=== PATIENT | female | born 1985 | race Caucasian/White ===

== ENCOUNTER 2018-04-15 20:08 | Emergency (ER) | payer MEDICAID ==
[~2018-04-15] VITALS: Ht 167.6 cm; Wt 65.8 kg
[2018-04-15 20:30] VITALS: BP_SYST 128
[2018-04-15 21:34] VITALS: BP_SYST 122
== END 2018-04-15 21:33 | disposition home or self-care (01) ==
LOC: SED 20:08
DX: S63.501A Unspecified sprain of right wrist, initial encounter (principal); S16.1XXA Strain of muscle, fascia and tendon at neck level, initial encounter; S39.012A Strain of muscle, fascia and tendon of lower back, initial encounter; R03.0 Elevated blood-pressure reading, without diagnosis of hypertension; V43.62XA Car passenger injured in collision with other type car in traffic accident, initial encounter; Y93.89 Activity, other specified; Y92.488 Other paved roadways as the place of occurrence of the external cause; Y99.8 Other external cause status
CPT/HCPCS: 81025; 99283

== ENCOUNTER 2018-07-28 21:31 | Emergency (ER) | payer MEDICAID ==
[~2018-07-28] VITALS: Ht 165.1 cm; Wt 63.0 kg
[2018-07-28 21:35] VITALS: BP_SYST 133
--- NOTE | 2018-07-28 21:38 | NUR ---
Patient to ER bed 08 to gown for evaluation. Side rails up.
--- NOTE | 2018-07-28 21:40 | NUR ---
Patient complaining of brown discharge to right breast x 2 days with abdominal discomfort and pain with urination. Denies any nausea, vomiting or diarrhea. No other complaints/injuries per patient or as noted. Will continue to monitor.
--- NOTE | 2018-07-28 22:01 | NUR ---
Urine specimen collected and analyzed in ER. Results given to ER MD. Urine HCG done, results neg
--- NOTE | 2018-07-28 22:02 | NUR ---
ELLEN Coker at bedside examining patient.
[2018-07-28 22:24] LABS: BILIRUBIN,URINE NEGATIVE (NEGATIVE); BLOOD, URINE 2+ (NEGATIVE); CLARITY/URINE HAZY (CLEAR); COLOR,URINE YELLOW (YELLOW); GLUCOSE,URINE NEGATIVE (NEGATIVE); KETONES,URINE TRACE (NEGATIVE); LEUKOCYTE ESTERASE ,URINE 1+ (NEGATIVE); NITRITE, URINE NEGATIVE (NEGATIVE); PROTEIN URINE NEGATIVE (NEGATIVE); UROBILINOGEN,URINE 0.2 (0.2-1.0)
[2018-07-28 23:00] VITALS: BP_SYST 133
--- NOTE | 2018-07-28 23:00 | NUR ---
2300 - Patient given written and verbal discharge instructions and verbalizes understanding. ER MD discussed with patient the results and treatment provided. Patient in stable condition. ID arm band removed. Rx of macrobid given. Patient educated on pain management and to follow up with PMD. Pain Scale 0. Opportunity for questions provided and answered. Medication side effect fact sheet provided.
[2018-07-28 23:05] LABS: BACTERIA,URINE FEW /HPF (None Seen)
[2018-07-28 23:06] LABS: MUCUS,URINE 2+ /LPF (None Seen)
== END 2018-07-28 23:00 | disposition home or self-care (01) ==
LOC: SED 21:31
DX: N64.4 Mastodynia (principal); N39.0 Urinary tract infection, site not specified
CPT/HCPCS: 81000-TC; 81025; 87086; 99283

== ENCOUNTER 2018-11-12 20:58 | Emergency (ER) | payer MEDICAID ==
[~2018-11-12] VITALS: Ht 167.6 cm; Wt 63.5 kg
[2018-11-12 21:17] VITALS: BP_SYST 109
[2018-11-12 21:59] LABS: BILIRUBIN,URINE NEGATIVE (NEGATIVE); CLARITY/URINE CLEAR (CLEAR); COLOR,URINE YELLOW (YELLOW); GLUCOSE,URINE NEGATIVE (NEGATIVE); KETONES,URINE NEGATIVE (NEGATIVE); LEUKOCYTE ESTERASE ,URINE NEGATIVE (NEGATIVE); NITRITE, URINE NEGATIVE (NEGATIVE); PROTEIN URINE NEGATIVE (NEGATIVE)
[2018-11-12 22:03] LABS: BLOOD, URINE TRACE (NEGATIVE)
[2018-11-12 22:18] LABS: RBC,URINE 0-3 /HPF (0-3); WBC,URINE 0-3 /HPF (0-3)
[2018-11-12 22:19] LABS: BACTERIA,URINE RARE /HPF (None Seen); MUCUS,URINE None Seen /LPF (None Seen)
[2018-11-12 22:29] LABS: BASOPHILS % (AUTO) 0.4 % (0.0-2.0); EOSINOPHILS # (AUTO) 0.1 K/uL (0.0-0.4); HEMATOCRIT 36.5 % (36-48); HEMOGLOBIN 12.3 g/dL (12.0-16.0); LYMPHOCYTES # (AUTO) 2.2 K/uL (1.0-5.5); LYMPHOCYTES % (AUTO) 29.1 % (20.5-51.5); MEAN CORPUSCULAR HEMOGLOBIN 30 pg (27-31); MEAN CORPUSCULAR HGB CONC 34 % (32-36); MEAN CORPUSCULAR VOLUME 88 fL (79.0-98.0); MONOCYTES # (AUTO) 0.6 K/uL (0.0-1.0); MONOCYTES % (AUTO) 8.4 % (1.7-9.3); NEUTROPHILS # (AUTO) 4.6 K/uL (1.8-7.7); NEUTROPHILS % (AUTO) 61.1 % (40.0-70.0); PLATELET COUNT (AUTO) 279 K/uL (130-430); RED BLOOD CELL COUNT(AUTO) 4.15 MIL/uL (4.2-6.2); WHITE BLOOD COUNT (AUTO) 7.6 K/uL (4.8-10.8)
[2018-11-12 22:53] LABS: CALCIUM 9.2 mg/dL (8.4-11.0); CREATININE 0.71 mg/dL (0.55-1.30); POTASSIUM 3.9 mmol/L (3.5-5.1)
[2018-11-12 22:59] LABS: ALBUMIN 3.8 g/dL (3.4-4.8); TOTAL BILIRUBIN 0.5 mg/dL (0.0-1.0)
--- NOTE | 2018-11-12 23:25 | NUR ---
Patient to ER bed 7 to gown for evaluation. Side rails up. Report given to ZENAIDA SEARS.
--- NOTE | 2018-11-12 23:30 | NUR ---
Pt C/O pelvic pain and dysuria. Pt denies any flank pain, N/V/D, or any other symptoms at this time. Lab and urine have been collected. Will continue to monitor.
--- NOTE | 2018-11-13 00:28 | NUR ---
Pt is resting in bed, no acute distress noted at this time.
--- NOTE | 2018-11-13 01:25 | NUR ---
Dr. Arndt at bedside for re-evaluation.
[2018-11-13] MEDS ORDERED: KETOROLAC TROMETHAMINE 30 MG VIAL IVP ONE (01:30)
--- NOTE | 2018-11-13 01:33 | NUR ---
Patient transported to radiology via wheelchair, accompanied by rad staff.
--- NOTE | 2018-11-13 01:40 | NUR ---
Pt returned in stable condition
--- NOTE | 2018-11-13 01:45 | NUR ---
Pt has been given Toradol IM via Dr. Arndt order. Will continue to monitor
[2018-11-13 02:38] VITALS: BP_SYST 118
--- NOTE | 2018-11-13 02:41 | NUR ---
Patient given written and verbal discharge instructions and verbalizes understanding. ER MD discussed with patient the results and treatment provided. Patient in stable condition. ID arm band removed. Rx of [place] given. Patient educated on pain management and to follow up with PMD. Pain Scale 0. Opportunity for questions provided and answered. Medication side effect fact sheet provided.
== END 2018-11-13 02:41 | disposition home or self-care (01) ==
LOC: SED 20:58
DX: K80.20 Calculus of gallbladder without cholecystitis without obstruction (principal); N83.202 Unspecified ovarian cyst, left side; N83.201 Unspecified ovarian cyst, right side
CPT/HCPCS: 36415; 74176; 76856; 80053; 81000; 85025; 96372; 99284; J1885

== ENCOUNTER 2019-09-05 23:03 | Emergency (ER) | payer MEDICAID ==
[~2019-09-05] VITALS: Ht 165.1 cm; Wt 63.5 kg
[2019-09-05 23:12] VITALS: BP_SYST 124
[2019-09-05] MEDS ORDERED: MORPHINE 2 MG/ML INJ. SYRINGE IVP ONE (23:30)
[2019-09-05] MEDS ORDERED: cefTRIAXone 1 GM IVPB PREMIX 50 ML IV ONE (23:30)
[2019-09-06 00:20] LABS: BASOPHILS % (AUTO) 0.4 % (0.0-2.0); EOSINOPHILS # (AUTO) 0.1 K/uL (0.0-0.4); EOSINOPHILS % (AUTO) 1.4 % (0.0-4.0); HEMATOCRIT 35.9 % (36-48); HEMOGLOBIN 12.4 g/dL (12.0-16.0); LYMPHOCYTES # (AUTO) 2.1 K/uL (1.0-5.5); LYMPHOCYTES % (AUTO) 32.3 % (20.5-51.5); MEAN CORPUSCULAR HEMOGLOBIN 30 pg (27-31); MEAN CORPUSCULAR HGB CONC 34 % (32-36); MEAN CORPUSCULAR VOLUME 87 fL (79.0-98.0); MONOCYTES # (AUTO) 0.7 K/uL (0.0-1.0); MONOCYTES % (AUTO) 11.1 % (1.7-9.3); NEUTROPHILS # (AUTO) 3.6 K/uL (1.8-7.7); NEUTROPHILS % (AUTO) 54.8 % (40.0-70.0); PLATELET COUNT (AUTO) 281 K/uL (130-430); RED BLOOD CELL COUNT(AUTO) 4.14 MIL/uL (4.2-6.2); RED CELL DISTRIBUTION WIDTH 12.6 % (9.0-15.0); WHITE BLOOD COUNT (AUTO) 6.6 K/uL (4.8-10.8)
[2019-09-06 00:21] LABS: BILIRUBIN,URINE NEGATIVE (NEGATIVE); BLOOD, URINE 1+ (NEGATIVE); CLARITY/URINE CLEAR (CLEAR); COLOR,URINE YELLOW (YELLOW); GLUCOSE,URINE NEGATIVE (NEGATIVE); KETONES,URINE NEGATIVE (NEGATIVE); LEUKOCYTE ESTERASE ,URINE 1+ (NEGATIVE); NITRITE, URINE NEGATIVE (NEGATIVE); PROTEIN URINE NEGATIVE (NEGATIVE); UROBILINOGEN,URINE 0.2 (0.2-1.0)
[2019-09-06 00:33] LABS: CREATININE 0.78 mg/dL (0.55-1.30); POTASSIUM 3.6 mmol/L (3.5-5.1)
[2019-09-06 00:35] LABS: BACTERIA,URINE RARE /HPF (None Seen)
[2019-09-06 00:39] LABS: ALBUMIN 3.8 g/dL (3.4-4.8); TOTAL BILIRUBIN 0.4 mg/dL (0.0-1.0)
[2019-09-06] MEDS ORDERED: cefTRIAXone 1 GM IVPB PREMIX 50 ML IV ONE (00:39)
[2019-09-06] MEDS ORDERED: KETOROLAC TROMETHAMINE 30 MG VIAL IVP ONE (00:45)
[2019-09-06 02:01] VITALS: BP_SYST 124
== END 2019-09-06 02:01 | disposition home or self-care (01) ==
LOC: SED 23:03
DX: K80.50 Calculus of bile duct without cholangitis or cholecystitis without obstruction (principal); N39.0 Urinary tract infection, site not specified
CPT/HCPCS: 36415; 76700; 80053; 81000; 82150; 83690; 85025; 87040; 87086; 96365; 96375; 99284; J0696; J1885; J2270

== ENCOUNTER 2019-12-08 19:53 | Emergency (ER) | payer MEDICAID ==
[~2019-12-08] VITALS: Ht 165.1 cm; Wt 68.0 kg
[2019-12-08 19:58] VITALS: BP_SYST 139
[2019-12-08 20:16] VITALS: BP_SYST 134
== END 2019-12-08 20:16 | disposition home or self-care (01) ==
LOC: SED 19:53
DX: M94.0 Chondrocostal junction syndrome [Tietze] (principal)
CPT/HCPCS: 93005; 99283

== ENCOUNTER 2020-08-11 21:26 | Emergency (ER) | payer MEDICAID ==
[~2020-08-11] VITALS: Ht 162.6 cm; Wt 65.8 kg
--- NOTE | 2020-08-11 21:29 | NUR ---
Patient to ER bed 06 to gown for evaluation. Side rails up.
[2020-08-11 21:33] VITALS: BP_SYST 122
--- NOTE | 2020-08-11 22:00 | NUR ---
Pt walked in c/o bilateral ear pain, sore throat, HANDY x several weeks. Denies blurred vision, dizziness, difficulty breathing.
--- NOTE | 2020-08-11 22:30 | NUR ---
Dr. Asencio at bedside for MSE.
[2020-08-11] MEDS ORDERED: OXYM15MI9 NS (22:49)
[2020-08-11] MEDS ORDERED: CLAR250T12 PO (22:49)
[2020-08-11] MEDS ORDERED: PRED20TA PO (22:49)
[2020-08-11] MEDS ORDERED: NAPR-686 PO (22:49)
[2020-08-11] MEDS ORDERED: AZITHROMYCIN 250 MG TABLET ONE (22:57)
[2020-08-11 23:00] VITALS: BP_SYST 122
[2020-08-11] MEDS ORDERED: AZITHROMYCIN 250 MG TABLET PO ONE (23:00)
--- NOTE | 2020-08-11 23:00 | NUR ---
Patient given written and verbal discharge instructions and verbalizes understanding. ER MD discussed with patient the results and treatment provided. Patient in stable condition. ID arm band removed. Rx of BIAXIN, NAPROXEN, AFRIN, PREDNISONE given. Patient educated on pain management and to follow up with PMD. Pain Scale 3/10. Opportunity for questions provided and answered. Medication side effect fact sheet provided.
== END 2020-08-11 23:00 | disposition home or self-care (01) ==
LOC: SED 21:26
DX: J01.00 Acute maxillary sinusitis, unspecified (principal)
CPT/HCPCS: 99283; Q0144

== ENCOUNTER 2020-09-17 18:40 | Emergency (ER) | payer MEDICAID ==
[~2020-09-17] VITALS: Ht 167.6 cm; Wt 63.5 kg
[~2020-09-17 18:40] MED LIST: CLAR250T12 PO; NAPR-686 PO; OXYM15MI9 NS; PRED20TA PO
--- NOTE | 2020-09-17 19:17 | NUR ---
Pt triaged and placed in waiting area
[2020-09-17 19:18] VITALS: BP_SYST 139
[2020-09-17 19:55] LABS: BASOPHILS % (AUTO) 0.7 % (0.0-2.0); EOSINOPHILS # (AUTO) 0.1 K/uL (0.0-0.4); EOSINOPHILS % (AUTO) 1.4 % (0.0-4.0); HEMATOCRIT 37.2 % (36-48); HEMOGLOBIN 12.9 g/dL (12.0-16.0); LYMPHOCYTES # (AUTO) 2.1 K/uL (1.0-5.5); LYMPHOCYTES % (AUTO) 33.9 % (20.5-51.5); MEAN CORPUSCULAR HEMOGLOBIN 30 pg (27-31); MEAN CORPUSCULAR HGB CONC 35 % (32-36); MEAN CORPUSCULAR VOLUME 85 fL (79.0-98.0); MONOCYTES # (AUTO) 0.5 K/uL (0.0-1.0); MONOCYTES % (AUTO) 7.6 % (1.7-9.3); NEUTROPHILS # (AUTO) 3.6 K/uL (1.8-7.7); NEUTROPHILS % (AUTO) 56.4 % (40.0-70.0); PLATELET COUNT (AUTO) 299 K/uL (130-430); RED BLOOD CELL COUNT(AUTO) 4.36 MIL/uL (4.2-6.2); RED CELL DISTRIBUTION WIDTH 12.5 % (9.0-15.0); WHITE BLOOD COUNT (AUTO) 6.3 K/uL (4.8-10.8)
[2020-09-17 20:05] LABS: CALCIUM 9.2 mg/dL (8.4-11.0); CREATININE 0.74 mg/dL (0.55-1.30); POTASSIUM 3.7 mmol/L (3.5-5.1)
[2020-09-17 20:15] LABS: ALBUMIN 3.7 g/dL (3.4-4.8); BILIRUBIN,DIRECT 0.1 mg/dL (0.0-0.3); TOTAL BILIRUBIN 0.4 mg/dL (0.0-1.0)
[2020-09-17 20:56] LABS: BILIRUBIN,URINE NEGATIVE (NEGATIVE); BLOOD, URINE 2+ (NEGATIVE); COLOR,URINE YELLOW (YELLOW); GLUCOSE,URINE NEGATIVE (NEGATIVE); KETONES,URINE TRACE (NEGATIVE); LEUKOCYTE ESTERASE ,URINE NEGATIVE (NEGATIVE); NITRITE, URINE NEGATIVE (NEGATIVE); PROTEIN URINE NEGATIVE (NEGATIVE)
[2020-09-17 20:59] LABS: CLARITY/URINE HAZY (CLEAR)
[2020-09-17 21:01] LABS: RBC,URINE 0-3 /HPF (0-3); WBC,URINE 0-3 /HPF (0-3)
[2020-09-17 21:02] LABS: BACTERIA,URINE FEW /HPF (None Seen); CALCIUM OXALATE CRYSTALS,UR 50-70 /HPF (None Seen); MUCUS,URINE None Seen /LPF (None Seen)
--- NOTE | 2020-09-17 21:46 | NUR ---
Patient to ER bed 3 to gown for evaluation. Side rails up. Report given to ORION Dawn.
--- NOTE | 2020-09-17 22:50 | NUR ---
PATIENT AAOX4 AND AMBULATORY FROM HOME C/O LOWER ABDOMINAL PAIN WITH CRAMPING X 4 DAYS. PER PATIENT SHE HAS BEEN HAVING IRREGULAR PERIODS. DENIES ANY FEVER, +N, -V. PATIENT STATED HAVING EPISODES OF DIZZINESS. + DYSURIA. CURRENTLY STATING 6/10 ON THE PAIN SCALE.
--- NOTE | 2020-09-17 22:50 | NUR ---
ER Dr. Asencio at bedside examining patient.
--- NOTE | 2020-09-18 00:01 | NUR ---
Patient transported to Ultrasound room via wheelchair, accompanied by radiology tech.
--- NOTE | 2020-09-18 00:12 | NUR ---
Patient came back from US room.
[2020-09-18] MEDS ORDERED: NAPR-1169 PO (00:35)
[2020-09-18] MEDS ORDERED: CEPH250C PO (00:35)
[2020-09-18 00:45] VITALS: BP_SYST 139
--- NOTE | 2020-09-18 00:45 | NUR ---
Patient given written and verbal discharge instructions and verbalizes understanding. DR. JOE HUGHES MD discussed with patient the results and treatment provided. Patient in stable condition. ID arm band removed. IV catheter removed intact and dressing applied, no active bleeding. Rx of KEFLEX, NAPROXEN given. Patient educated on pain management and to follow up with PMD. Pain Scale 0/10. Opportunity for questions provided and answered. Medication side effect fact sheet provided.
== END 2020-09-18 00:45 | disposition home or self-care (01) ==
LOC: SED 18:40
DX: R10.30 Lower abdominal pain, unspecified (principal); T38.4X5A Adverse effect of oral contraceptives, initial encounter; Z88.5 Allergy status to narcotic agent; Z79.899 Other long term (current) drug therapy; Y92.89 Other specified places as the place of occurrence of the external cause
CPT/HCPCS: 36415; 76830-TC; 76857; 80048; 80076; 81000; 81025; 83690; 84702; 85025; 85610-TC; 99284

== ENCOUNTER 2021-03-06 20:33 | Emergency (ER) | payer MEDICAID, SELFPAY ==
[~2021-03-06] VITALS: Ht 165.1 cm; Wt 63.5 kg
[~2021-03-06 20:33] MED LIST changes: +CEPH250C PO; +NAPR-1169 PO
[2021-03-06 20:58] VITALS: BP_SYST 112
--- NOTE | 2021-03-06 21:30 | NUR ---
Pt brought by self, A&Ox4, pt presents to ER with R breast pain x 1 week, skin pink and warm, cap refill <3, VSS.
--- NOTE | 2021-03-07 00:25 | NUR ---
Patient given written and verbal discharge instructions and verbalizes understanding. ER MD discussed with patient the results and treatment provided. Patient in stable condition. ID arm band removed. Patient educated on pain management and to follow up with PMD. Pain Scale 0/10. Opportunity for questions provided and answered. Medication side effect fact sheet provided.
[2021-03-07 01:26] VITALS: BP_SYST 112
== END 2021-03-07 01:26 | disposition home or self-care (01) ==
LOC: SED 20:33
DX: N64.4 Mastodynia (principal); Z88.5 Allergy status to narcotic agent; Z79.899 Other long term (current) drug therapy
CPT/HCPCS: 81025; 99282